=== PATIENT | female | born 1975 | race Caucasian/White ===

== ENCOUNTER 2022-03-19 06:22 | Day surgery (SDC) | payer OTHER ==
[~2022-03-19] VITALS: Ht 154.9 cm; Wt 56.8 kg
[~2022-03-19 06:22] MED LIST: GEMF-77 PO
[2022-03-19] MEDS ORDERED: LIDOCAINE 4% 50 ML SOLUTION TP ONE (06:23)
[2022-03-19] MEDS ORDERED: BENZOCAINE 20% 50 MCG/SPRAY 57 GM TP ONE (06:23)
[2022-03-19] MEDS ORDERED: LIDOCAINE 2% 11 ML JELLY TP ONE (06:23)
[2022-03-19] MEDS ORDERED: SODIUM CHLORIDE 0.9% 1,000 ML IV ONE (06:30)
[2022-03-19 06:46] LABS: COVID AG,FIA SOURCE NASAL SWAB
[2022-03-19] MEDS ORDERED: SODIUM CHLORIDE 0.9% 1,000 ML ONE (07:27)
[2022-03-19] MEDS ORDERED: GEMF-77 PO (08:05)
[2022-03-19] MEDS ORDERED: FentaNYL CITRATE PF 100 MCG/2 ML VIAL ONE (08:09)
[2022-03-19] MEDS ORDERED: MIDAZOLAM HCL 2 MG/2 ML VIAL ONE (08:09)
[2022-03-19] MEDS ORDERED: MethylPREDNISolone SOD SUCC 125 MG/2 ML VIAL ONE (08:53)
[2022-03-19] MEDS ORDERED: MethylPREDNISolone SOD SUCC 125 MG/2 ML VIAL IVP ONE (09:30)
[2022-03-19] MEDS ORDERED: OXYGEN THERAPY IH SCH (20:00)
== END 2022-03-19 11:25 | disposition home or self-care (01) ==
LOC: SURGERY 06:22
PROVIDERS: ATTEND Internal Medicine Critical Care Medicine
DX: J38.4 Edema of larynx (principal); Z79.899 Other long term (current) drug therapy; G47.30 Sleep apnea, unspecified; Z90.12 Acquired absence of left breast and nipple; Z98.890 Other specified postprocedural states; Z20.822 Contact with and (suspected) exposure to COVID-19
CPT/HCPCS: 31623; 84703; 87101; 87220; 87070; 31624; 71045; 87015; 87426; 87206; J3010; J2250; J2930; Q9967; J7030; C9803; Z7610